=== PATIENT | female | born 1950 | race Native Hawaiian/Other Pacific Islander ===

== ENCOUNTER 2016-07-06 15:03 | Outpatient (CLI) | payer OTHER ==
[2016-07-06 15:36] LABS: PLATELET COUNT 264 K/uL (152-353)
== END 2016-07-06 19:11 | disposition home or self-care (01) ==
LOC: LABW 15:03
PROVIDERS: Nurse Practitioner
DX: E11.9 Type 2 diabetes mellitus without complications (principal); I10 Essential (primary) hypertension; E55.9 Vitamin D deficiency, unspecified; E78.00 Pure hypercholesterolemia, unspecified; R53.83 Other fatigue
CPT/HCPCS: 36415; 80053; 80061; 82043; 82306; 82570; 83036; 84439; 84443; 85027

== ENCOUNTER 2016-07-07 11:48 | Outpatient (CLI) | payer OTHER | END 2016-07-07 19:08 | disposition home or self-care (01) | LOC: LAB 11:48 | DX: D51.0 Vitamin B12 deficiency anemia due to intrinsic factor deficiency (principal) | CPT/HCPCS: 82607 ==

== ENCOUNTER 2016-07-19 12:47 | Outpatient (CLI) | payer OTHER | END 2016-07-19 23:44 | disposition home or self-care (01) | LOC: MAMMO 12:47 | DX: Z12.31 Encounter for screening mammogram for malignant neoplasm of breast (principal) | CPT/HCPCS: G0202-TC ==

== ENCOUNTER 2016-08-03 12:50 | Outpatient (CLI) | payer OTHER | END 2016-08-03 19:19 | disposition home or self-care (01) | LOC: MAMMO 12:50 | DX: R92.1 Mammographic calcification found on diagnostic imaging of breast (principal); R92.8 Other abnormal and inconclusive findings on diagnostic imaging of breast | CPT/HCPCS: 77066; G0204 ==

== ENCOUNTER 2017-01-17 13:50 | Outpatient (CLI) | payer OTHER ==
[2017-01-17 14:03] LABS: PLATELET COUNT 215 K/uL (152-353)
[2017-01-17 14:23] LABS: POTASSIUM 4.4 mmol/L (3.6-5.2)
== END 2017-01-17 19:04 | disposition home or self-care (01) ==
LOC: LAB 13:50
PROVIDERS: Nurse Practitioner Family
DX: I10 Essential (primary) hypertension (principal); E11.9 Type 2 diabetes mellitus without complications; R53.83 Other fatigue; E55.9 Vitamin D deficiency, unspecified; E78.00 Pure hypercholesterolemia, unspecified; K21.9 Gastro-esophageal reflux disease without esophagitis; Z79.899 Other long term (current) drug therapy; Z51.81 Encounter for therapeutic drug level monitoring
CPT/HCPCS: 80053; 80061; 82306; 82607; 83036; 84436; 84443; 85027

== ENCOUNTER 2017-04-25 13:05 | Outpatient (CLI) | payer OTHER ==
[2017-04-25 13:51] LABS: PLATELET COUNT 214 K/uL (152-353)
[2017-04-25 14:43] LABS: SODIUM 135 mmol/L (136-145)
== END 2017-04-25 19:11 | disposition home or self-care (01) ==
LOC: LAB 13:05
PROVIDERS: Nurse Practitioner Family
DX: E78.00 Pure hypercholesterolemia, unspecified (principal); R53.83 Other fatigue; E55.9 Vitamin D deficiency, unspecified; I10 Essential (primary) hypertension; E11.9 Type 2 diabetes mellitus without complications; Z79.899 Other long term (current) drug therapy; Z51.81 Encounter for therapeutic drug level monitoring
CPT/HCPCS: 80053; 80061; 83036; 84436; 84443; 85027

== ENCOUNTER 2017-10-17 14:40 | Outpatient (CLI) | payer OTHER ==
[2017-10-17 15:20] LABS: POTASSIUM 4.5 mmol/L (3.6-5.2)
[2017-10-17 15:24] LABS: PLATELET COUNT 224 K/uL (152-353)
== END 2017-10-17 18:22 | disposition home or self-care (01) ==
LOC: LAB 14:40
PROVIDERS: Nurse Practitioner Family
DX: R53.83 Other fatigue (principal); E78.00 Pure hypercholesterolemia, unspecified; E55.9 Vitamin D deficiency, unspecified; I10 Essential (primary) hypertension; E11.9 Type 2 diabetes mellitus without complications; Z79.899 Other long term (current) drug therapy; Z51.81 Encounter for therapeutic drug level monitoring
CPT/HCPCS: 80053; 80061; 83036; 84436; 84443; 85027

== ENCOUNTER 2017-11-14 12:57 | Outpatient (CLI) | payer OTHER | END 2017-11-14 22:19 | disposition home or self-care (01) | LOC: MAMMO 12:57 | DX: Z12.31 Encounter for screening mammogram for malignant neoplasm of breast (principal) ==

== ENCOUNTER 2018-12-04 11:18 | Outpatient (CLI) | payer OTHER | END 2018-12-04 20:00 | disposition home or self-care (01) | LOC: MAMMO 11:18 | DX: Z12.31 Encounter for screening mammogram for malignant neoplasm of breast (principal) ==

== ENCOUNTER 2020-01-15 10:16 | Outpatient (CLI) | payer OTHER | END 2020-01-15 21:28 | disposition home or self-care (01) | LOC: MAMMO 10:16 | DX: Z12.31 Encounter for screening mammogram for malignant neoplasm of breast (principal) ==

== ENCOUNTER 2020-05-19 11:08 | Outpatient (CLI) | payer OTHER ==
[2020-05-19 11:58] LABS: PLATELET COUNT 214 K/uL (152-353)
[2020-05-19 13:31] LABS: POTASSIUM 4.6 mmol/L (3.6-5.2)
== END 2020-05-19 19:14 | disposition home or self-care (01) ==
LOC: LABW 11:08
PROVIDERS: ATTEND Internal Medicine
DX: E11.22 Type 2 diabetes mellitus with diabetic chronic kidney disease (principal); N18.32 Chronic kidney disease, stage 3b; R53.83 Other fatigue; E53.8 Deficiency of other specified B group vitamins
CPT/HCPCS: 36415; 80053; 82330; 82607; 82728; 82746; 83036; 83540; 83550; 83735; 83970; 84100; 84439; 84443; 85027; 85652; 86038

== ENCOUNTER 2020-05-28 09:58 | Outpatient (CLI) | payer OTHER | END 2020-05-28 19:03 | disposition home or self-care (01) | LOC: US 09:58 | PROVIDERS: ATTEND Internal Medicine | DX: N18.32 Chronic kidney disease, stage 3b (principal) ==

== ENCOUNTER 2020-09-15 09:01 | Outpatient (CLI) | payer OTHER ==
[2020-09-15 09:24] LABS: PLATELET COUNT 234 K/uL (152-353)
== END 2020-09-15 21:00 | disposition home or self-care (01) ==
LOC: LABW 09:01
PROVIDERS: ATTEND Nurse Practitioner
DX: E11.22 Type 2 diabetes mellitus with diabetic chronic kidney disease (principal); N18.32 Chronic kidney disease, stage 3b; K21.9 Gastro-esophageal reflux disease without esophagitis; E55.9 Vitamin D deficiency, unspecified; E11.65 Type 2 diabetes mellitus with hyperglycemia; E78.49 Other hyperlipidemia; I12.9 Hypertensive chronic kidney disease with stage 1 through stage 4 chronic kidney disease, or unspecified chronic kidney disease
CPT/HCPCS: 36415; 80053; 80061; 81000; 82043; 82306; 82330; 82570; 83036; 83735; 83970; 84100; 84155; 84439; 84443; 85027

== ENCOUNTER 2021-04-01 09:45 | Outpatient (CLI) | payer OTHER ==
[2021-04-01 10:24] LABS: PLATELET COUNT 234 K/uL (152-353)
[2021-04-01 10:50] LABS: POTASSIUM 4.7 mmol/L (3.6-5.2)
== END 2021-04-01 18:58 | disposition home or self-care (01) ==
LOC: LABW 09:45
PROVIDERS: ATTEND Internal Medicine
DX: E11.22 Type 2 diabetes mellitus with diabetic chronic kidney disease (principal); N18.32 Chronic kidney disease, stage 3b; R82.998 Other abnormal findings in urine
CPT/HCPCS: 36415; 80053; 81000; 82043; 82306; 82330; 82570; 83036; 83735; 83970; 84100; 84155; 84439; 84443; 85027; 87086; 87088

== ENCOUNTER 2021-04-05 13:28 | Outpatient (CLI) | payer OTHER | END 2021-04-05 20:26 | disposition home or self-care (01) | LOC: MAMMO 13:28 | PROVIDERS: ATTEND Nurse Practitioner Family | DX: Z12.31 Encounter for screening mammogram for malignant neoplasm of breast (principal); N18.30 Chronic kidney disease, stage 3 unspecified; E78.49 Other hyperlipidemia; E11.65 Type 2 diabetes mellitus with hyperglycemia; E55.9 Vitamin D deficiency, unspecified; I12.9 Hypertensive chronic kidney disease with stage 1 through stage 4 chronic kidney disease, or unspecified chronic kidney disease ==

== ENCOUNTER 2021-04-21 13:51 | Outpatient (CLI) | payer OTHER | END 2021-04-21 20:26 | disposition home or self-care (01) | LOC: RAD 13:51 | PROVIDERS: ATTEND Nurse Practitioner Family | DX: Z00.8 Encounter for other general examination (principal); Z71.82 Exercise counseling; Z13.31 Encounter for screening for depression; Z13.820 Encounter for screening for osteoporosis; N95.8 Other specified menopausal and perimenopausal disorders ==

== ENCOUNTER 2021-07-07 10:30 | Outpatient (CLI) | payer OTHER ==
[2021-07-07 11:09] LABS: PLATELET COUNT 224 K/uL (152-353)
[2021-07-07 11:26] LABS: POTASSIUM 4.8 mmol/L (3.6-5.2)
== END 2021-07-07 18:58 | disposition home or self-care (01) ==
LOC: LABW 10:30
PROVIDERS: ATTEND Internal Medicine
DX: E11.22 Type 2 diabetes mellitus with diabetic chronic kidney disease (principal); N18.32 Chronic kidney disease, stage 3b
CPT/HCPCS: 36415; 80053; 81000; 82043; 82306; 82330; 82570; 83036; 83735; 83970; 84100; 84155; 84439; 84443; 85027

== ENCOUNTER 2021-11-22 14:51 | Outpatient (CLI) | payer OTHER ==
[2021-11-22 15:29] LABS: PLATELET COUNT 244 K/uL (152-353)
== END 2021-11-22 19:52 | disposition home or self-care (01) ==
LOC: LABW 14:51
PROVIDERS: ATTEND Internal Medicine
DX: E11.22 Type 2 diabetes mellitus with diabetic chronic kidney disease (principal); N18.32 Chronic kidney disease, stage 3b
CPT/HCPCS: 36415; 80053; 81002; 82043; 82306; 82330; 82570; 83036; 83735; 83970; 84100; 84156; 84439; 84443; 85027

== ENCOUNTER 2022-03-16 08:12 | Outpatient (CLI) | payer OTHER ==
[2022-03-16 09:08] LABS: POTASSIUM 4.8 mmol/L (3.6-5.2)
[2022-03-16 14:52] LABS: PLATELET COUNT 258 K/uL (152-353)
== END 2022-03-16 19:26 | disposition home or self-care (01) ==
LOC: LABW 08:12
PROVIDERS: ATTEND Nurse Practitioner Family
DX: I12.9 Hypertensive chronic kidney disease with stage 1 through stage 4 chronic kidney disease, or unspecified chronic kidney disease (principal); N18.30 Chronic kidney disease, stage 3 unspecified; E11.9 Type 2 diabetes mellitus without complications; R31.9 Hematuria, unspecified; E87.5 Hyperkalemia; E78.49 Other hyperlipidemia; E03.8 Other specified hypothyroidism; E55.9 Vitamin D deficiency, unspecified; R80.8 Other proteinuria
CPT/HCPCS: 36415; 80053; 80061; 81000; 82043; 82306; 83036; 84436; 84443; 85027; 87086; 87088

== ENCOUNTER 2022-04-11 13:37 | Outpatient (CLI) | payer OTHER ==
[2022-04-11 14:14] LABS: PLATELET COUNT 352 K/uL (152-353)
[2022-04-11 14:37] LABS: POTASSIUM 4.6 mmol/L (3.6-5.2)
== END 2022-04-11 20:02 | disposition home or self-care (01) ==
LOC: MAMMO 13:37 → LABW 13:37 → MAMMO 20:02
PROVIDERS: ATTEND Nurse Practitioner Family
DX: Z12.31 Encounter for screening mammogram for malignant neoplasm of breast (principal); N18.32 Chronic kidney disease, stage 3b; E11.22 Type 2 diabetes mellitus with diabetic chronic kidney disease
CPT/HCPCS: 36415; 80053; 81002; 82043; 82306; 82330; 82570; 83036; 83735; 83970; 84100; 84156; 84439; 84443; 85027

== ENCOUNTER 2022-07-26 10:10 | Outpatient (CLI) | payer OTHER ==
[2022-07-26 10:43] LABS: PLATELET COUNT 265 K/uL (152-353)
[2022-07-26 11:15] LABS: POTASSIUM 5.2 mmol/L (3.6-5.2)
== END 2022-07-26 18:57 | disposition home or self-care (01) ==
LOC: LABW 10:10
PROVIDERS: ATTEND Nurse Practitioner Family
DX: E11.8 Type 2 diabetes mellitus with unspecified complications (principal); G47.00 Insomnia, unspecified; E55.9 Vitamin D deficiency, unspecified
CPT/HCPCS: 36415; 80053; 80061; 82043; 82306; 83036; 84439; 84443; 85027

== ENCOUNTER 2022-09-20 13:19 | Outpatient (CLI) | payer OTHER ==
[2022-09-20 13:40] LABS: PLATELET COUNT 239 K/uL (152-353)
== END 2022-09-20 19:00 | disposition home or self-care (01) ==
LOC: LABW 13:19
PROVIDERS: ATTEND Internal Medicine
DX: E11.22 Type 2 diabetes mellitus with diabetic chronic kidney disease (principal); N18.32 Chronic kidney disease, stage 3b; R82.998 Other abnormal findings in urine
CPT/HCPCS: 36415; 80053; 81000; 82043; 82306; 82330; 82570; 83036; 83735; 83970; 84100; 84156; 84439; 84443; 85027; 87077; 87086; 87088; 87186